=== PATIENT | female | born 1945 | race Caucasian/White ===

== ENCOUNTER 2017-07-20 05:25 | Inpatient (IN) | payer BC ==
[~2017-07-20] VITALS: Ht 165.1 cm; Wt 70.3 kg
[2017-07-20] VITALS (13 sets, daily range): BP systolic 87–127
[~2017-07-20 05:25] MED LIST: AMLO5TAB4 PO; FEXO180T94 PO; LIP10 PO; METO-442 PO
[2017-07-20] MEDS ORDERED: LevALBUTEROL HCL 1.25 MG/0.5 ML *CONC.* VIAL.NEB (XOPENEX CONC.) INH ONE ×2 (05:30→06:33)
[2017-07-20] MEDS ORDERED: CELECOXIB 200 MG CAPSULE ONE ×2 (06:08)
[2017-07-20] MEDS ORDERED: GABAPENTIN 300 MG CAPSULE ONE ×2 (06:09)
[2017-07-20] MEDS ORDERED: ACETAMINOPHEN 500 MG TABLET ONE (06:10)
[2017-07-20] MEDS ORDERED: oxyCODONE HCL 10 MG TAB.ER.12H PO ONE ×2 (06:11→10:15)
[2017-07-20] MEDS ORDERED: TRANEXAMIC ACID 650 MG TABLET ONE (06:12)
[2017-07-20] MEDS: CLINDAMYCIN PHOS 600 MG/ D5W 50 ML PREMIX IV ONE (06:55)
[2017-07-20] MEDS ORDERED: CLINDAMYCIN 600 mg/50mL D5W 50 ML IV ONE (06:55)
[2017-07-20] MEDS ORDERED: POLYMYXIN 500,000/BACIT.10,000 UNITS in NS IRR 1 L IR ONE (07:03)
[2017-07-20] MEDS: KETOROLAC TROMETHAMINE 30 MG VIAL ONE (07:03)
[2017-07-20] MEDS ORDERED: ON Q PUMP ID SCH (08:15)
[2017-07-20] MEDS ORDERED: HYDROmorphone 1 MG INJ. 1 MG/ML AMPUL IVP PRN ×2 (08:15→09:15)
[2017-07-20] MEDS ORDERED: ROPIVACAINE 0.2% ID SCH (08:15)
[2017-07-20] MEDS ORDERED: HYDROcodone/ACETAMIN 10-325 MG TAB PO PRN ×2 (08:15)
[2017-07-20] MEDS ORDERED: HYDROmorphone 2 MG/ML VIAL IVP PRN ×2 (08:15)
[2017-07-20] MEDS ORDERED: MEPERIDINE HCL/PF 25 MG/ML DISP.SYRIN IVP PRN (08:15)
[2017-07-20] MEDS: ROPIVACAINE 0.2% 100 ML INJ SCH ×2 (08:15→20:45)
[2017-07-20] MEDS: LR 1,000 ML IV SCH ×2 (08:15→09:35)
[2017-07-20] MEDS ORDERED: ROPIVACAINE 0.2% 550 ML INJ SCH (09:05)
[2017-07-20] MEDS ORDERED: ONDANSETRON HCL 4 MG/2 ML VIAL IVP PRN (09:15)
[2017-07-20] MEDS ORDERED: SENNOSIDES 8.6 MG TABLET PO PRN (09:15)
[2017-07-20] MEDS ORDERED: oxyCODONE HCL 5 MG TABLET PO PRN ×2 (09:15)
[2017-07-20] MEDS ORDERED: KETOROLAC TROMETHAMINE 15 MG VIAL IVP PRN (09:15)
[2017-07-20] MEDS ORDERED: DIPHENHYDRAMINE HCL 25 MG CAPSULE PO PRN (09:15)
[2017-07-20] MEDS ORDERED: NACL 0.9% 1,000 ML IV ONE (10:15)
[2017-07-20] MEDS ORDERED: GABAPENTIN 300 MG CAPSULE PO ONE (10:15)
[2017-07-20] MEDS ORDERED: CELECOXIB 200 MG CAPSULE PO ONE (10:15)
[2017-07-20] MEDS ORDERED: ACETAMINOPHEN 500 MG TABLET PO ONE (10:15)
[2017-07-20] MEDS ORDERED: TRANEXAMIC ACID 650 MG TABLET PO ONE (10:15)
[2017-07-20] MEDS: CLINDAMYCIN 600 MG in D5W 50 ML IV SCH ×2 (12:00→18:09)
[2017-07-20] MEDS ORDERED: LR 1,000 ML IV ONE (13:30)
[2017-07-20] MEDS: ACETAMINOPHEN 500 MG TABLET PO SCH ×2 (15:00→21:00)
[2017-07-20] MEDS: D5LR 1,000 ML IV SCH ×2 (15:00→22:32)
[2017-07-20 16:50] LABS: BASOPHILS % (AUTO) 0.3 % (0.0-2.0); EOSINOPHILS % (AUTO) 0.1 % (0.0-4.0); HEMATOCRIT 37.9 % (36-48); HEMOGLOBIN 12.6 g/dL (12.0-16.0); LYMPHOCYTES # (AUTO) 0.7 K/uL (1.0-5.5); LYMPHOCYTES % (AUTO) 9.3 % (20.5-51.5); MEAN CORPUSCULAR HEMOGLOBIN 31 pg (27-31); MEAN CORPUSCULAR HGB CONC 33 % (32-36); MEAN CORPUSCULAR VOLUME 92 fL (79.0-98.0); MONOCYTES # (AUTO) 0.1 K/uL (0.0-1.0); MONOCYTES % (AUTO) 0.7 % (1.7-9.3); NEUTROPHILS # (AUTO) 6.4 K/uL (1.8-7.7); NEUTROPHILS % (AUTO) 89.6 % (40.0-70.0); PLATELET COUNT (AUTO) 183 K/uL (130-430); RED BLOOD CELL COUNT(AUTO) 4.12 MIL/uL (4.2-6.2); RED CELL DISTRIBUTION WIDTH 12.7 % (9.0-15.0); WHITE BLOOD COUNT (AUTO) 7.2 K/uL (4.8-10.8)
[2017-07-20 16:57] LABS: ANION GAP 6 (5-15); CALCIUM 8.3 mg/dL (8.4-11.0); CHLORIDE 107 mmol/L (98-107); CREATININE 0.71 mg/dL (0.55-1.30); GLUCOSE 187 mg/dL (70-99); POTASSIUM 4.2 mmol/L (3.5-5.1); SODIUM SERUM 138 mmol/L (136-145); UREA NITROGEN, BLOOD 18 mg/dL (8-21)
[2017-07-20 17:02] LABS: ALANINE AMINOTRANSFERASE 27 U/L (12-78); ALBUMIN 3.4 g/dL (3.4-4.8); ASPARTATE AMINOTRANSFERASE 30 U/L (10-37); TOTAL BILIRUBIN 0.4 mg/dL (0.0-1.0)
[2017-07-20] MEDS ORDERED: IOHEXOL 350 mgI/mL, 150 ML INFUS..BTL IV ONE (17:54)
[2017-07-20] MEDS ORDERED: HEPARIN 25,000 UNITS/D5W 250ML 250 ML IV PRN (18:15)
[2017-07-20] MEDS: METOPROLOL TARTRATE 50 MG TABLET PO SCH (21:00)
[2017-07-20] MEDS: CELECOXIB 200 MG CAPSULE PO SCH (22:31)
[2017-07-20] MEDS: GABAPENTIN 300 MG CAPSULE PO SCH (22:31)
[2017-07-21] VITALS (20 sets, daily range): BP systolic 90–129
[2017-07-21] MEDS: CLINDAMYCIN 600 MG in D5W 50 ML IV SCH ×4 (00:20→17:35)
[2017-07-21] MEDS ORDERED: HEPARIN SODIUM, PORCINE 10,000 UNITS/ 10 ML VIAL ONE (00:23)
[2017-07-21] MEDS: D5LR 1,000 ML IV SCH (04:53)
[2017-07-21 06:51] LABS: HEMOGLOBIN 12.9 g/dL (12.0-16.0); LYMPHOCYTES # (AUTO) 1.1 K/uL (1.0-5.5); LYMPHOCYTES % (AUTO) 7.7 % (20.5-51.5); MEAN CORPUSCULAR HEMOGLOBIN 32 pg (27-31); MEAN CORPUSCULAR HGB CONC 34 % (32-36); MEAN CORPUSCULAR VOLUME 93 fL (79.0-98.0); MONOCYTES # (AUTO) 1.1 K/uL (0.0-1.0); MONOCYTES % (AUTO) 7.7 % (1.7-9.3); NEUTROPHILS # (AUTO) 11.9 K/uL (1.8-7.7); NEUTROPHILS % (AUTO) 84.6 % (40.0-70.0); PLATELET COUNT (AUTO) 204 K/uL (130-430); RED CELL DISTRIBUTION WIDTH 12.5 % (9.0-15.0); WHITE BLOOD COUNT (AUTO) 14.1 K/uL (4.8-10.8)
[2017-07-21 07:01] LABS: ANION GAP 7 (5-15); CALCIUM 8.9 mg/dL (8.4-11.0); CHLORIDE 108 mmol/L (98-107); CREATININE 0.63 mg/dL (0.55-1.30); GLUCOSE 181 mg/dL (70-99); SODIUM SERUM 140 mmol/L (136-145); UREA NITROGEN, BLOOD 13 mg/dL (8-21)
[2017-07-21] MEDS: FEXOFENADINE 180 MG PO SCH (09:00)
[2017-07-21] MEDS ORDERED: NON-FORMULARY MEDICATION (Fexofenadine Hcl (Allegra Allergy) 1 TAB) PO SCH (09:00)
[2017-07-21] MEDS: amLODIPine BESYLATE 5 MG TABLET PO SCH (09:12)
[2017-07-21] MEDS: CELECOXIB 200 MG CAPSULE PO SCH ×2 (09:13→22:28)
[2017-07-21] MEDS: ATORVASTATIN 10 MG TABLET PO SCH (09:15)
[2017-07-21] MEDS: ROPIVACAINE 0.2% 100 ML INJ SCH (09:15)
[2017-07-21] MEDS: ACETAMINOPHEN 500 MG TABLET PO SCH ×3 (09:19→21:00)
[2017-07-21] MEDS: METOPROLOL TARTRATE 50 MG TABLET PO SCH ×2 (09:20→22:28)
[2017-07-21] MEDS: RIVAROXABAN 10 MG TABLET PO SCH (10:00)
[2017-07-21] MEDS: D5/0.45 NS 1,000 ML IV SCH (10:56)
[2017-07-21] MEDS: GABAPENTIN 300 MG CAPSULE PO SCH (21:00)
[2017-07-22] MEDS: CLINDAMYCIN 600 MG in D5W 50 ML IV SCH ×2 (00:03→06:04)
[2017-07-22] MEDS: D5/0.45 NS 1,000 ML IV SCH (00:04)
[2017-07-22 00:47] VITALS: BP_SYST 110
[2017-07-22 04:42] VITALS: BP_SYST 105
[2017-07-22 06:35] LABS: BASOPHILS % (AUTO) 0.3 % (0.0-2.0); EOSINOPHILS # (AUTO) 0.1 K/uL (0.0-0.4); EOSINOPHILS % (AUTO) 0.9 % (0.0-4.0); HEMATOCRIT 26.4 % (36-48); LYMPHOCYTES # (AUTO) 2.1 K/uL (1.0-5.5); MEAN CORPUSCULAR HEMOGLOBIN 31 pg (27-31); MEAN CORPUSCULAR HGB CONC 34 % (32-36); MEAN CORPUSCULAR VOLUME 91 fL (79.0-98.0); MONOCYTES # (AUTO) 0.8 K/uL (0.0-1.0); MONOCYTES % (AUTO) 10.1 % (1.7-9.3); NEUTROPHILS # (AUTO) 5.2 K/uL (1.8-7.7); NEUTROPHILS % (AUTO) 62.7 % (40.0-70.0); PLATELET COUNT (AUTO) 139 K/uL (130-430); RED BLOOD CELL COUNT(AUTO) 2.89 MIL/uL (4.2-6.2); RED CELL DISTRIBUTION WIDTH 12.7 % (9.0-15.0); WHITE BLOOD COUNT (AUTO) 8.3 K/uL (4.8-10.8)
[2017-07-22 08:23] LABS: ANION GAP 5 (5-15); CALCIUM 8.1 mg/dL (8.4-11.0); CHLORIDE 110 mmol/L (98-107); CREATININE 0.67 mg/dL (0.55-1.30); GLUCOSE 108 mg/dL (70-99); POTASSIUM 3.5 mmol/L (3.5-5.1); SODIUM SERUM 141 mmol/L (136-145); UREA NITROGEN, BLOOD 10 mg/dL (8-21)
[2017-07-22 08:30] VITALS: BP_SYST 123
[2017-07-22] MEDS: CELECOXIB 200 MG CAPSULE PO SCH (08:33)
[2017-07-22] MEDS: ATORVASTATIN 10 MG TABLET PO SCH (08:33)
[2017-07-22] MEDS: METOPROLOL TARTRATE 50 MG TABLET PO SCH (08:35)
[2017-07-22] MEDS: amLODIPine BESYLATE 5 MG TABLET PO SCH (08:35)
[2017-07-22] MEDS: ACETAMINOPHEN 500 MG TABLET PO SCH ×2 (08:38→16:38)
[2017-07-22] MEDS: FEXOFENADINE 180 MG PO SCH (09:00)
[2017-07-22] MEDS: RIVAROXABAN 10 MG TABLET PO SCH (10:00)
[2017-07-22 10:21] VITALS: BP_SYST 104
[2017-07-22 13:13] VITALS: BP_SYST 93
[2017-07-22 17:07] VITALS: BP_SYST 104
== END 2017-07-22 18:00 | DRG 470 ==
LOC: SMU 05:25 → STU 11:17 → SIC 14:13 → STU 07-21 18:48
PROVIDERS: ADMIT Orthopaedic Surgery; ATTEND Orthopaedic Surgery
PROC: 3E0T3CZ (ICD-10-PCS; 2017-07-20)
PROC: 0SRD0J9 Replacement of Left Knee Joint with Synthetic Substitute, Cemented, Open Approach (ICD-10-PCS; principal; 2017-07-20 07:30)
DX: M17.12 Unilateral primary osteoarthritis, left knee (principal); D64.9 Anemia, unspecified; I10 Essential (primary) hypertension; E78.5 Hyperlipidemia, unspecified; J45.909 Unspecified asthma, uncomplicated; D72.829 Elevated white blood cell count, unspecified; I95.81 Postprocedural hypotension; Z79.899 Other long term (current) drug therapy; Z80.9 Family history of malignant neoplasm, unspecified; Z85.3 Personal history of malignant neoplasm of breast; Z87.891 Personal history of nicotine dependence; Z88.1 Allergy status to other antibiotic agents; Z90.11 Acquired absence of right breast and nipple; Z92.21 Personal history of antineoplastic chemotherapy; Z92.3 Personal history of irradiation; Z88.2 Allergy status to sulfonamides; Z88.8 Allergy status to other drugs, medicaments and biological substances
CPT/HCPCS: 36415; 71010; 80048; 80053; 85025; 85730-TC; 87081; 88305; 88311; 93306; 93970; 94010; 94640; 97039; 97110-GP; 97116-GP; 97530-GP; C1713; C1776; J1644; J1885; J2795; J3490; J7030; J7060; J7120; Q9967